=== PATIENT | female | born 1970 | race Caucasian/White ===

== ENCOUNTER 2016-11-28 19:41 | Emergency (ER) | payer OTHER ==
[2016-11-28 19:41] VITALS: BMI 25.8
[2016-11-28 20:08] VITALS: TEMP 98
--- NOTE | 2016-11-28 20:14 | ED PDOC ---
Arrival/HPI - General Historian: Patient <Peyman Frausto - Last Filed: 11/28/16 20:09> <Rigoberto Bassett - Last Filed: 11/28/16 20:28> - General Chief Complaint: Upper Extremity Problem/Injury Time Seen by Provider: 11/28/16 20:09 - History of Present Illness Narrative History of Present Illness (Text): 11/28/16 20:00 46 y/o female, no significant, pmh, nkda, c/o rt. shoulder pain s/p pushing box too hard while at work yesterday. Aching pain, aggravated by movement, no fall or trauma, no numbness or tingling, no chest pain or shortness of breath, no palpitation, no night sweat, no rash, no difficulty moving the rt. shoulder, no night sweat, no other medical or psychological complaints. (Peyman Frausto) Past Medical History - Provider Review Nursing Documentation Reviewed: Yes - Infectious Disease Hx of Infectious Diseases: None - Tetanus Immunization Tetanus Immunization: Unknown - Past Medical History Past Medical History: No Previous - Psychiatric Hx Depression: No Hx Emotional Abuse: No Hx Physical Abuse: No Hx Substance Use: No - Surgical History Hx Orthopedic Surgery: Yes (BACK) - Anesthesia Hx Anesthesia: No Hx Anesthesia Reactions: No Hx Malignant Hyperthermia: No - Suicidal Assessment Feels Threatened In Home Enviroment: No <Peyman Frausto - Last Filed: 11/28/16 20:09> Family/Social History - Physician Review Nursing Documentation Reviewed: Yes Family/Social History: Unknown Family HX Smoking Status: Never Smoked Hx Alcohol Use: No Hx Substance Use: No Hx Substance Use Treatment: No <Peyman Frausto - Last Filed: 11/28/16 20:09> Allergies/Home Meds <Peyman Frausto - Last Filed: 11/28/16 20:09> <Rigoberto Bassett - Last Filed: 11/28/16 20:28> Allergies/Adverse Reactions: Allergies Penicillins Allergy (Verified 11/28/16 20:03) RASH Review of Systems - Review of Systems Constitutional: absent: Fatigue, Fevers Eyes: absent: Vision Changes ENT: absent: Hearing Changes Respiratory: absent: SOB, Cough Cardiovascular: absent: Chest Pain Gastrointestinal: absent: Abdominal Pain, Nausea, Vomiting Musculoskeletal: Myalgias. absent: Arthralgias, Back Pain, Neck Pain, Joint Swelling Skin: absent: Rash, Pruritis, Skin Lesions, Laceration, Abscess, Ulcer, Cellulitis, Other <Peyman Frausto - Last Filed: 11/28/16 20:09> Physical Exam Vital Signs Reviewed: Yes Temperature: Afebrile Blood Pressure: Normal Pulse: Regular Respiratory Rate: Normal Appearance: Positive for: Well-Appearing, Non-Toxic, Comfortable Pain Distress: None Mental Status: Positive for: Alert and Oriented X 3 - Systems Exam Head: Present: Atraumatic, Normocephalic Pupils: Present: PERRL Extroacular Muscles: Present: EOMI Conjunctiva: Present: Normal Mouth: Present: Moist Mucous Membranes Neck: Present: Normal Range of Motion Respiratory/Chest: Present: Clear to Auscultation, Good Air Exchange. No: Respiratory Distress, Accessory Muscle Use Cardiovascular: Present: Regular Rate and Rhythm, Normal S1, S2. No: Murmurs Abdomen: Present: Normal Bowel Sounds. No: Tenderness, Distention, Peritoneal Signs Back: Present: Normal Inspection Upper Extremity: Present: Normal Inspection, Other (Rt. shoulder: mild +ttp on the rt. posterior trapezius and infraspinatus muscle region, no bony tenderness or swelling, no deformity, FROM without limitation, sensation intact, motor 5/5 , +radial pulse, capillary refill< 2 seconds, neurovascular intct. ). No: Cyanosis, Edema Lower Extremity: Present: Normal Inspection. No: Edema Neurological: Present: GCS=15, Speech Normal, Motor Func Grossly Intact, Gait Normal, Memory Normal Skin: Present: Warm, Dry, Normal Color. No: Rashes Psychiatric: Present: Alert, Oriented x 3, Normal Insight, Normal Concentration <Peyman Frausto - Last Filed: 11/28/16 20:09> Vital Signs Temp Pulse Resp BP Pulse Ox 11/28/16 20:06 98 F 72 17 121/81 100 Medical Decision Making <Peyman Frausto - Last Filed: 11/28/16 20:09> <Rigoberto Bassett - Last Filed: 11/28/16 20:28> ED Course and Treatment: 11/28/16 20:15 -Urine hcg negative -toradol IM -There is no emergent indication of the labs or radiology result, advised MRI of the rt. shoulder if pain persist after 7 days with the orthopedic/PMD. -Discharge home with ibuprofen, flexeril (this will make you drowsiness), heat compression, bed rest, advised MRI of the rt. shoulder if pain persist after 7 days with the orthopedic/PMD, follow up with your own pmd and orthopedic within 2 days, return to the ER for any new or worsening signs or symptoms. (Peyman Frausto) - Medication Orders Current Medication Orders: Discontinued Medications Ketorolac Tromethamine (Toradol) 60 mg IM STAT STA Stop: 11/28/16 20:17 - PA / DELIVERY TABLE FEEDER / Resident Statement BIJU has reviewed & agrees with the documentation as recorded. <Peyman Frausto - Last Filed: 11/28/16 20:09> - PA / DELIVERY TABLE FEEDER / Resident Statement BIJU has reviewed & agrees with the documentation as recorded. BIJU has examined the patient and agrees with the treatment plan. <Rigoberto Bassett - Last Filed: 11/28/16 20:28> Disposition/Present on Arrival - Present on Arrival Any Indicators Present on Arrival: No History of DVT/PE: No History of Uncontrolled Diabetes: No Urinary Catheter: No History of Decub. Ulcer: No History Surgical Site Infection Following: None - Disposition Have Diagnosis and Disposition been Completed?: Yes Disposition Time: 20:15 Patient Plan: Discharge <Peyman Frausto - Last Filed: 11/28/16 20:09> <Rigoberto Bassett - Last Filed: 11/28/16 20:28> - Disposition Diagnosis: Muscle strain of right shoulder region, Shoulder pain, acute Disposition: HOME/ ROUTINE Condition: GOOD Additional Instructions: Discharge home with ibuprofen, flexeril (this will make you drowsiness), heat compression, bed rest, advised MRI of the rt. shoulder if pain persist after 7 days with the orthopedic/PMD, follow up with your own pmd and orthopedic within 2 days, return to the ER for any new or worsening signs or symptoms. Prescriptions: Cyclobenzaprine [Cyclobenzaprine HCl] 10 mg PO TID PRN #21 tab PRN Reason: Other Ibuprofen [Motrin Tab] 600 mg PO QID PRN #24 tab PRN Reason: Other Referrals: Mikey Agiular MD [Staff Provider] - Follow up with primary [facility] at [facility] [place] [Outside] - Follow up with primary Forms: WORK NOTE
[2016-11-28 20:52] VITALS: BP 122/80; PULSE 73; RESP 16; O2SAT 99
== END 2016-11-28 21:03 | disposition home or self-care (01) ==
LOC: ED 19:41
DX: S46.911A Strain of unspecified muscle, fascia and tendon at shoulder and upper arm level, right arm, initial encounter (principal); X50.9XXA Other and unspecified overexertion or strenuous movements or postures, initial encounter; Y92.89 Other specified places as the place of occurrence of the external cause; Y99.0 Civilian activity done for income or pay; M25.511 Pain in right shoulder
CPT/HCPCS: 96372; 99284; J1885

== ENCOUNTER 2018-03-03 10:22 | Emergency (ER) | payer OTHER ==
[2018-03-03 10:22] VITALS: BMI 25.8
[2018-03-03 10:48] VITALS: TEMP 98.1; O2SAT 100
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
[2018-03-03 11:38] VITALS: BP 107/73; PULSE 70; RESP 16
--- NOTE | 2018-03-03 11:55 | RAD ---
PROCEDURE: Radiographs of the Right Shoulder HISTORY: Right upper extremity pain. COMPARISON: No prior. FINDINGS: BONES: Normal. No fracture. JOINTS: Normal. Glenohumeral and acromioclavicular joints preserved. No osteoarthritis. SOFT TISSUES: Normal. OTHER FINDINGS: None. IMPRESSION: Normal radiographs of the right shoulder.
== END 2018-03-03 11:37 | disposition home or self-care (01) ==
LOC: ED 10:22
DX: S43.401A Unspecified sprain of right shoulder joint, initial encounter (principal); V49.69XA Unspecified car occupant injured in collision with other motor vehicles in traffic accident, initial encounter; Y92.410 Unspecified street and highway as the place of occurrence of the external cause